=== PATIENT | male | born 1975 | race Caucasian/White ===

== ENCOUNTER 2019-11-23 16:45 | Emergency (ER) | payer BC, OTHER ==
[2019-11-23] MEDS ORDERED: Ketorolac 60 MG/2 ML SDV IM ONE (16:57)
[2019-11-23 17:19] LABS: CHLORIDE,CL 102 mmol/L (98-107); SODIUM,NA 139 mmol/L (136-145)
[2019-11-23] MEDS: Albuterol/Ipratropium 3.0-0.5 MG/3 ML Neb Soln NEB ONE ×2 (17:25→17:27)
--- NOTE | 2019-11-23 17:33 | EDM.PDOC ---
ED HPI GENERAL MEDICAL PROBLEM - General Chief Complaint: Respiratory Problem Stated Complaint: cough,fever Time Seen by Provider: 11/23/19 16:58 Source of Information: Reports: Patient History Limitations: Reports: No Limitations - History of Present Illness INITIAL COMMENTS - FREE TEXT/NARRATIVE: Cough/fever/chills/body aches/sore throat x24 hours. Denies vision changes. Has runny nose and congestion. Ear pain at times. Appetite is good. Drinking well. Denies nausea/emesis/bowel changes. No urinary changes/hematuria. No rashes/neuro changes. No other acute complaints. - Related Data Allergies Allergy/AdvReac Type Severity Reaction Status Date / Time No Known Allergies Allergy Verified 04/12/16 01:13 Home Meds: Home Meds Hydrocort/Neomycin/Polymyxin B [Cortisporin Otic Susp] 10 ml EARBOTH QID #1 bottle 04/12/16 [Rx] Benzonatate [Tessalon Perle] 100 mg PO TID PRN #30 capsule 11/23/19 [Rx] Past Medical History Cardiovascular History: Reports: High Cholesterol Psychiatric History: Reports: Anxiety Social & Family History - Tobacco Use Smoking Status *Q: Never Smoker ED ROS GENERAL - Review of Systems Review Of Systems: Comprehensive ROS is negative, except as noted in HPI. ED EXAM, GENERAL - Physical Exam Exam: See Below Exam Limited By: No Limitations General Appearance: Alert, WD/WN, Other (No acute distress. Intermittent dry cough. ) Eye Exam: Bilateral Eye: EOMI, PERRL Ears: Normal External Exam, Normal Canal, Hearing Grossly Normal, Normal TMs Nose: No: Nasal Deformity, Nasal Swelling, Nasal Drainage Throat/Mouth: Normal Inspection, Normal Lips, Normal Voice, No Airway Compromise Head: Atraumatic, Normocephalic Neck: Normal Inspection, Supple, Non-Tender, Full Range of Motion Respiratory/Chest: No Respiratory Distress, Lungs Clear, Normal Breath Sounds, No Accessory Muscle Use, Chest Non-Tender Cardiovascular: Regular Rate, Rhythm, No Murmur Peripheral Pulses: 2+: Radial (L), Radial (R) GI/Abdominal: Normal Bowel Sounds, Soft, Non-Tender, No Distention (Male) Exam: Deferred Rectal (Males) Exam: Deferred Back Exam: No: CVA Tenderness (L), CVA Tenderness (R), Muscle Spasm Extremities: Normal Inspection, Normal Capillary Refill Neurological: Alert, Oriented, Normal Cognition, No Motor/Sensory Deficits Psychiatric: Normal Affect, Normal Mood Skin Exam: Warm, Dry, Intact, Normal Color Course - Orders/Labs/Meds Orders: Active Orders 24 hr Category Date Time Status RT Aerosol Therapy [RC] ASDIRECTED Care 11/23/19 16:58 Active Chest 2V [CR] Stat Exams 11/23/19 16:57 Taken CULTURE STREP A CONFIRMATION [RM] Stat Lab 11/23/19 17:00 Results STREP SCRN A RAPID W CULT CONF [RM] Stat Lab 11/23/19 17:00 Received UA W/MICROSCOPIC [URIN] Stat Lab 11/23/19 16:56 Ordered Labs: Laboratory Tests 11/23/19 11/23/19 11/23/19 Range/Units 16:47 16:47 16:47 WBC 5.4 (4.0-10.2) K/uL RBC 4.88 (4.33-5.41) M/uL Hgb 14.7 (13.1-16.8) g/dL Hct 43.3 (39.0-49.0) % MCV 88.7 (84.0-98.0) fL MCH 30.1 (28.2-33.3) pg MCHC 33.9 (31.7-36.0) g/dL RDW 12.9 (11.2-14.1) % Plt Count 163 (150-350) K/uL Neut % (Auto) 60.4 (45.0-80.0) % Lymph % (Auto) 23.4 (10.0-50.0) % Love % (Auto) 15.4 H (2.0-14.0) % Eos % (Auto) 0.6 (0.0-5.0) % Baso % (Auto) 0.2 (0.0-2.0) % Neut # (Auto) 3.25 (1.40-7.00) K/uL Lymph # (Auto) 1.26 (0.50-3.50) K/uL Love # (Auto) 0.83 (0.00-1.00) K/uL Eos # (Auto) 0.03 (0.00-0.50) K/uL Baso # (Auto) 0.01 (0.00-0.20) K/uL Sodium 139 (136-145) mmol/L Potassium 3.6 (3.5-5.1) mmol/L Chloride 102 (98-107) mmol/L Carbon Dioxide 24.9 (21.0-32.0) mmol/L BUN 15 (7-18) mg/dL Creatinine 1.03 (0.51-1.17) mg/dL Est Cr Clr Drug Dosing TNP Estimated GFR (MDRD) > 60 mL/min Glucose 123 H (74-106) mg/dL Lactic Acid 1.2 (0.4-2.0) mmol/L Calcium 9.0 (8.5-10.1) mg/dL Magnesium 1.7 L (1.8-2.4) mg/dL Total Bilirubin 0.3 (0.2-1.0) mg/dL AST 18 (15-37) U/L ALT 37 (12-78) U/L Alkaline Phosphatase 82 (46-116) IU/L Total Protein 7.7 (6.4-8.2) g/dL Albumin 4.0 (3.4-5.0) g/dL Meds: Medications Discontinued Medications Generic Name Dose Route Start Last Admin Trade Name Freq PRN Reason Stop Dose Admin Albuterol/Ipratropium 3 ml 11/23/19 16:57 11/23/19 17:27 Duoneb 3.0-0.5 Mg/3 Ml NEB 11/23/19 16:58 Not Given ONETIME ONE Ketorolac Tromethamine 60 mg 11/23/19 16:57 11/23/19 17:25 Toradol IM 11/23/19 16:58 60 mg ONETIME ONE Administration - Re-Assessments/Exams Free Text/Narrative Re-Assessment/Exam: Basic labs obtained. Normal WBC. Magnesium slightly low at 1.7 Strep negative Influenza B positive. Toradol IM given for muscle aches. Has access to nebulizer at home. Given Albuterol nebs from ER stock. Rx for Tessalon Perles given to patient to hand picker Monday. Precautions reviewed. To follow up as needed if this does not follow a normal viral course/has sudden worsening/has no significant improvement towards end of week. To start OTC Mg supplementation. Start at around 500mg daily and have Mg rechecked in 3-4 weeks. Departure - Departure Time of Disposition: 17:30 Disposition: Home, Self-Care 01 Condition: Good Clinical Impression: Influenza B - Discharge Information *PRESCRIPTION DRUG MONITORING PROGRAM REVIEWED*: Not Applicable *COPY OF PRESCRIPTION DRUG MONITORING REPORT IN PATIENT EM: Not Applicable Prescriptions: Benzonatate [Tessalon Perle] 100 mg PO TID PRN #30 capsule PRN Reason: Cough Instructions: Influenza, Adult, [id number], Hypomagnesemia Referrals: PCP,Not In Area [Primary Care Provider] - Forms: ED Department Discharge Additional Instructions: Use nebs one every 6 hours to help with cough Use Tylenol/ibuprofen to help with muscles aches and fevers. Stay hydrated! nutritional yeast supervisor Tessalon Monday to further help with cough. Follow up as needed if you experience sudden worsening symptoms. Follow up at end of week if you are not showing much improvement of symptoms. Sepsis Event Note - Focused Exam Date Exam was Performed: 11/23/19 Time Exam was Performed: 19:28 - My Orders Last 24 Hours: My Active Orders 11/23/19 16:56 UA W/MICROSCOPIC [URIN] Stat 11/23/19 16:57 Chest 2V [CR] Stat 11/23/19 16:58 RT Aerosol Therapy [RC] ASDIRECTED 11/23/19 17:00 CULTURE STREP A CONFIRMATION [RM] Stat STREP SCRN A RAPID W CULT CONF [RM] Stat - Assessment/Plan Last 24 Hours: My Active Orders 11/23/19 16:56 UA W/MICROSCOPIC [URIN] Stat 11/23/19 16:57 Chest 2V [CR] Stat 11/23/19 16:58 RT Aerosol Therapy [RC] ASDIRECTED 11/23/19 17:00 CULTURE STREP A CONFIRMATION [RM] Stat STREP SCRN A RAPID W CULT CONF [RM] Stat
== END 2019-11-23 17:40 | disposition home or self-care (01) ==
LOC: LL.ED 16:45
DX: J10.1 Influenza due to other identified influenza virus with other respiratory manifestations (principal)
CPT/HCPCS: 36415; 71046; 80053; 83605; 83735; 85025; 87081; 87430; 87804; 96372; 99284; J1885; J7620-GY

== ENCOUNTER 2020-11-11 10:55 | Emergency (ER) | payer BC, OTHER ==
--- NOTE | 2020-11-11 11:05 | EDM.PDOC ---
ED HPI GENERAL MEDICAL PROBLEM - General Chief Complaint: Upper Extremity Injury/Pain Stated Complaint: right pointer finger smashed Time Seen by Provider: 11/11/20 10:55 Source of Information: Reports: Patient, Old Records ([facility] EMR. No paper hospital chart available.) History Limitations: Reports: No Limitations - History of Present Illness INITIAL COMMENTS - FREE TEXT/NARRATIVE: The patient was brought to the emergency room via transport vehicle from [facility] for evaluation of a Workmen's Compensation injury, which occurred at about 10:15 AM this morning. He accidentally caught his second right finger in a metal clamp with some initial numbness and then subsequent 8/10 burning and throbbing type pain. The [facility] nurse did apply an ice pack and give him 600 mg of ibuprofen shortly prior to arrival. He has not injured this finger in the past, and he is right-handed. He denies any paresthesias, neurological deficits, history of foreign body, or other complaints or injuries. No recent history of abdominal pain, heartburn, nausea, diarrhea, melena, gross hematochezia, or any food intolerance, including fatty foods, etc.. The patient also denies any recent fever, cough, wheezing, dyspnea, etc.. Onset: Today, Sudden Onset Date: 11/11/20 Onset Time: 10:15 Duration: Constant, Improving Location: Reports: Upper Extremity, Right. Denies: Head, Face, Neck, Chest, Abdomen, Back, Pelvis, Upper Extremity, Left, Radiates to Quality: Reports: Burning, Throbbing Severity: Moderate Improves with: Reports: Cold Therapy Worsens with: Reports: Movement Context: Reports: Trauma (As above). Denies: Sick Contact Associated Symptoms: Reports: No Other Symptoms. 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 Cardiovascular History: Reports: High Cholesterol Musculoskeletal History: Reports: Arthritis, Fracture, Osteoarthritis, Other (See Below) Other Musculoskeletal History: Partial left rotator cuff tear on 06/22/2015 with surgery as below. Psychiatric History: Reports: Anxiety, Depression Endocrine/Metabolic History: Reports: Hypomagnesemia, Obesity/BMI 30+ - Infectious Disease History Infectious Disease History: Reports: Influenza (Influenza B) - Past Surgical History Musculoskeletal Surgical History: Reports: Arthroscopic Procedure, Shoulder Surgery, Other (See Below) Other Musculoskeletal Surgeries/Procedures:: Left shoulder arthroscopic rotator cuff repair in 2014. - Past Imaging History Past Imaging History: Reports: CAT Scan (Negative CT of the abdomen pelvis with IV contrast on 03/23/2017.), MRI (Positive MRI of the left shoulder on 06/22/2015.) Social & Family History - Tobacco Use Tobacco Use Status *Q: Current Every Day Tobacco User Tobacco Use Within Last Twelve Months: Cigars Years of Tobacco use: 30 Packs/Tins Daily Comment: Patient started smoking cigarettes at about age 15 years of 2 packs/day and additional chewing tobacco at about 1/3 can/day. He did stop using tobacco for about 8 years, however started daily cigar use in about 2018. 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 ED EXAM, GENERAL - Physical Exam Exam: See Below Exam Limited By: No Limitations General Appearance: Alert, WD/WN, No Apparent Distress Head: Atraumatic, Normocephalic Neck: Normal Inspection, Supple, Non-Tender, Full Range of Motion. No: Lymphadenopathy (L), Lymphadenopathy (R), Thyromegaly Respiratory/Chest: No Respiratory Distress, Lungs Clear, Normal Breath Sounds, No Accessory Muscle Use, Chest Non-Tender. No: Pleural Rub, Retractions Cardiovascular: Normal Peripheral Pulses, Regular Rate, Rhythm, No Edema, No Gallop, No JVD, No Murmur, No Rub. No: Gallop/S3, Gallop/S4, Friction Rub Peripheral Pulses: 2+: Radial (L), Radial (R) GI/Abdominal: Normal Bowel Sounds, Soft, Non-Tender, No Organomegaly, No Distention, No Abnormal Bruit, No Mass, Pelvis Stable, Other (Obese). No: Guarding (Male) Exam: Deferred Rectal (Males) Exam: Deferred Back Exam: Normal Inspection, Full Range of Motion. No: CVA Tenderness (L), CVA Tenderness (R), Muscle Spasm Extremities: Normal Capillary Refill, Limited Range of Motion (Mild in digit #2 of the right hand with mild to moderate palpation pain without swelling, ecchymosis, etc. in the middle phalanx. 0.25 cm mild superficial puncture wound in the mid extensor surface at the same location with no evidence of foreign body, nerve, vascular, or nerve involvement. No crepitation, deformity, or evidence of fracture). No: Non-Tender (As below) Neurological: Alert, Oriented, CN II-XII Intact, Normal Cognition, Normal Gait, No Motor/Sensory Deficits Psychiatric: Normal Affect, Normal Mood Skin Exam: Warm, Dry, Normal Color, No Rash, Wound/Incision (Minor as above). No: Diaphoretic, Ecchymosis Lymphatic: No Adenopathy Course - Vital Signs Last Recorded V/S: Last Vital Signs Temp 36.6 C 11/11/20 11:06 Pulse 75 11/11/20 11:06 Resp 20 11/11/20 11:06 BP 155/87 H 11/11/20 11:06 Pulse Ox 98 11/11/20 11:06 Vital Signs - 24 hr 11/11/20 11:06 Temperature [ 36.6 C Temporal] Pulse, 75 Peripheral [ Left Pulse Oximetry] Respiratory 20 Rate Blood Pressure 155/87 H [Left Upper Arm ] O2 Sat by Pulse 98 Oximetry - Orders/Labs/Meds Orders: Active Orders 24 hr Category Date Time Status Fingers Second Digit Rt F6 [CR] Stat Exams 11/11/20 11:04 Taken Obtain Past Medical Record [OM.PC] Routine Oth 11/11/20 11:04 Active Labs: None Meds: None - Radiology Interpretation Free Text/Narrative:: X-rays of digit #2 of the right hand, complete, shows no evidence of fracture, foreign body, dislocation, etc. Departure - Departure Time of Disposition: 11:50 Disposition: Home, Self-Care 01 Condition: Good Clinical Impression: Puncture wound, Tobacco abuse counseling, Elevated blood pressure reading Contusion Qualifiers: Encounter type: initial encounter Contusion area: finger Finger: index finger Damage to nail status: without damage Laterality: right Qualified Code(s): S60.021A - Contusion of right index finger without damage to nail, initial encounter Osteoarthritis Qualifiers: Osteoarthritis location: multiple joints Osteoarthritis type: primary Qualified Code(s): M89.49 - Other hypertrophic osteoarthropathy, multiple sites - Discharge Information *PRESCRIPTION DRUG MONITORING PROGRAM REVIEWED*: Not Applicable *COPY OF PRESCRIPTION DRUG MONITORING REPORT IN PATIENT EM: Not Applicable Instructions: Steps to Quit Smoking, [id number], Health Risks of Smoking, Puncture Wound, [id number], Crush Injury of the Hand, [id number] Referrals: Lc Baker PA [Primary Care Provider] - Forms: ED Department Discharge Additional Instructions: 1. Follow up with your regular provider in 10-14 days as needed, if symptoms persist. Bring these discharge instructions with you to that visit.. 2. Tylenol 650 mg by mouth every 4 hours and/or OTC ibuprofen 2-3 tabs by mouth every 6 hours with food as directed./needed. You may stagger these medications for 48-72 hours only, which essentially means that you are receiving a pain medication about every 2 hours. Next dose of ibuprofen in about 6 hours as needed. 3. Ice packs as needed/directed 4. Work excuse- See Form 5. Stop all tobacco use KAVITA as directed/per provided information and consider contacting Quit LIne, etc.. 6. Antibacterial soap wash/soak with subsequent antibacterial dressing such as Neosporin, etc. as directed 2 times per day until the wound site completely heals. Keep the area clean and dry with activity restrictions as discussed. Never use hydrogen peroxide for wound care. 7. Immediately after this visit verify that your cellular telephone's voicemail has been activated and is empty. Also verify that your home telephone's answering machine is operating properly and has space to receive messages. Note that it is sometimes necessary for us to be able to contact you at a later date to discuss your medical care. 8. Please remember that we are ALWAYS here for you and want to answer any questions you may have. Feel free to call the hospital any time and we call you back KAVITA. Sepsis Event Note (ED) - Focused Exam Vital Signs: Vital Signs Temp Pulse Resp BP Pulse Ox 11/11/20 11:06 36.6 C 75 20 155/87 H 98 - Problem List & Annotations (1) Contusion SNOMED Code(s): 988577609 Code(s): T14.8XXA - OTHER INJURY OF UNSPECIFIED BODY REGION, INITIAL ENCOUNTER Status: Acute Priority: High Current Visit: Yes Onset Date: 11/11/20 Annotation/Comment:: Minor contusion/crush injury with no evidence of fracture. Symptomatic relief as per discharge instructions. Patient did want to go back to work today. Workmen's Compensation and [employer] work excuse forms were completed. Qualifiers: Encounter type: initial encounter Contusion area: finger Finger: index finger Damage to nail status: without damage Laterality: right Qualified Code(s): S60.021A - Contusion of right index finger without damage to nail, initial encounter (2) Puncture wound SNOMED Code(s): 190255369 Code(s): T14.8XXA - OTHER INJURY OF UNSPECIFIED BODY REGION, INITIAL ENCOUNTER Status: Acute Priority: High Current Visit: Yes Onset Date: 11/11/20 Annotation/Comment:: Minor puncture wound not requiring repair with no evidence of significant injury. Infection precautions, etc. were given. Wound care was discussed. Emergency room nurse did confirm patient's last TDAP on 12/26/2019. (3) Osteoarthritis SNOMED Code(s): 342422578 Code(s): M19.90 - UNSPECIFIED OSTEOARTHRITIS, UNSPECIFIED SITE Status: Chronic Priority: Medium Current Visit: Yes Annotation/Comment:: Otherwise stable by history with no evidence or history of other injuries. Qualifiers: Osteoarthritis location: multiple joints Osteoarthritis type: primary Qualified Code(s): M89.49 - Other hypertrophic osteoarthropathy, multiple sites (4) Tobacco abuse counseling SNOMED Code(s): 693025926, 931672800, 128580499 Code(s): Z71.6 - TOBACCO ABUSE COUNSELING Status: Chronic Priority: Medium Current Visit: Yes Annotation/Comment:: Tobacco cessation was strongly encouraged with information provided at discharge. (5) Elevated blood pressure reading SNOMED Code(s): 77975282 Code(s): R03.0 - ELEVATED BLOOD-PRESSURE READING, W/O DIAGNOSIS OF HTN Status: Acute Priority: Medium Current Visit: Yes Onset Date: 11/11/20 Annotation/Comment:: Likely secondary to current injury. No previous history of hypertension. Observe for now, including by regular provider, etc. - Problem List Review Problem List Initiated/Reviewed/Updated: Yes - My Orders Last 24 Hours: My Active Orders 11/11/20 11:04 Fingers Second Digit Rt F6 [CR] Stat Obtain Past Medical Record [OM.PC] Routine - Assessment/Plan Last 24 Hours: My Active Orders 11/11/20 11:04 Fingers Second Digit Rt F6 [CR] Stat Obtain Past Medical Record [OM.PC] Routine Assessment:: As above Plan: As above. Extensive precautions were given to the patient, who is in agreement with the treatment plan. See Patient Instructions for further treatment and plan.
[2020-11-11 12:10] VITALS: BP 155/87; PULSE 75
== END 2020-11-11 11:50 | disposition home or self-care (01) ==
LOC: LL.ED 10:55
DX: S61.230A Puncture wound without foreign body of right index finger without damage to nail, initial encounter (principal); S60.021A Contusion of right index finger without damage to nail, initial encounter; M89.49 Other hypertrophic osteoarthropathy, multiple sites; R03.0 Elevated blood-pressure reading, without diagnosis of hypertension; E78.00 Pure hypercholesterolemia, unspecified; E66.9 Obesity, unspecified; Z68.38 Body mass index [BMI] 38.0-38.9, adult; Z71.6 Tobacco abuse counseling; Z79.899 Other long term (current) drug therapy; W23.0XXA Caught, crushed, jammed, or pinched between moving objects, initial encounter; Y92.89 Other specified places as the place of occurrence of the external cause; Y99.0 Civilian activity done for income or pay
CPT/HCPCS: 73140-F6; 99282; 99283

== ENCOUNTER 2021-07-26 18:30 | Emergency (ER) | payer BC, OTHER ==
[2021-07-26 18:39] VITALS: BP 144/97; PULSE 90
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
== END 2021-07-26 19:35 | disposition home or self-care (01) ==
LOC: LL.ED 18:30
DX: S52.571A Other intraarticular fracture of lower end of right radius, initial encounter for closed fracture (principal); E78.00 Pure hypercholesterolemia, unspecified; E83.42 Hypomagnesemia; E66.9 Obesity, unspecified; Z72.0 Tobacco use; V86.99XA Unspecified occupant of other special all-terrain or other off-road motor vehicle injured in nontraffic accident, initial encounter
CPT/HCPCS: 29125; 73110-RT; 73130-RT; 99283; 99283-25

== ENCOUNTER 2024-01-17 18:00 | Emergency (ER) | payer BC ==
[2024-01-17 18:16] VITALS: BP 155/84; PULSE 111
== END 2024-01-17 19:30 | disposition left against medical advice (07) ==
LOC: LL.ED 18:00
DX: K57.32 Diverticulitis of large intestine without perforation or abscess without bleeding (principal); E78.00 Pure hypercholesterolemia, unspecified; Z88.8 Allergy status to other drugs, medicaments and biological substances; Z79.899 Other long term (current) drug therapy
CPT/HCPCS: 36415; 74176; 83605; 86140; 99284